=== PATIENT | male | born 1995 | race Two or more races ===

== ENCOUNTER 2024-06-21 09:22 | Emergency (ER) | payer BC ==
[~2024-06-21] VITALS: Ht 175.3 cm; Wt 79.5 kg
[2024-06-21 09:26] VITALS: TEMP 98.4
[2024-06-21] MEDS: BACITRACIN 0.9 GM PACKET OINTMENT TP ONE (09:58)
[2024-06-21] MEDS: ACETAMINOPHEN 500 MG TABLET PO ONE (09:58)
[2024-06-21 10:30] VITALS: BP 130/75; PULSE 62; RESP 18; O2SAT 100
[2024-06-21] MEDS ORDERED: BACI28.410 TP (10:39)
[2024-06-21] MEDS ORDERED: ACET-3385 PO (10:39)
== END 2024-06-21 10:52 | disposition home or self-care (01) ==
LOC: EMS 09:37
DX: S60.212A Contusion of left wrist, initial encounter (principal); S80.212A Abrasion, left knee, initial encounter; F12.90 Cannabis use, unspecified, uncomplicated; V29.99XA Rider (driver) (passenger) of other motorcycle injured in unspecified traffic accident, initial encounter; Y93.89 Activity, other specified; Y92.89 Other specified places as the place of occurrence of the external cause; Y99.8 Other external cause status
CPT/HCPCS: 99283